=== PATIENT | male | born 1960 | race Caucasian/White ===

== ENCOUNTER → 2017-08-05 06:51 | Outpatient (CLI) | payer OTHER, SELFPAY ==
[2017-08-05 06:56] LABS: White Blood Cells 0 SEEN /hpf (0-5)
[2017-08-05 07:37] LABS: Absolute Lymphocyte Count 2.77 X10^3/ul (0.83-4.51); Basophil# 0.06 X10^3/uL; Basophil% 0.9 % (0-1); Eosinophil# 0.18 X10^3/uL; Eosinophils% 2.7 % (0-5); Hematocrit 47.2 % (40-54); Hemoglobin 16.8 g/dl (13.0-16.5); Lymphocyte # 2.77 X10^3/ul (4.0); Lymphocyte % 41.2 % (19-41); Mean Corp Hgb Conc 35.6 g/gl (32-36); Mean Corpuscular Hgb 32.6 pg (27.0-32.0); Mean Corpuscular Volume 91.7 fL (80-94); Mean Platelet Vol. 10.1 fl (6.2-12.0); Monocyte# 0.66 X10^3/uL; Monocyte% 9.8 % (0-10); Neutrophil # 3.04 X10^3/uL (2.7-7.7); Neutrophil % 45.1 % (47-70); Platelet Count 205 K/mm3 (150-450); RBC Distribution Width CV 12.1 % (11.6-14.6); Red Blood Count 5.15 M/mm3 (4.6-6.2); White Blood Count 6.7 K/mm3 (4.4-11.0)
[2017-08-05 07:47] LABS: POSITIVE COUNT NO; POSITIVE DIFFERENTIAL NO; POSITIVE MORPHOLOGY NO
[2017-08-05 07:53] LABS: Microalbumin,Random Urine 8.8 mg/L (NO RANGE EST.)
[2017-08-05 08:01] LABS: Color, Urine Yellow (Yellow); Glucose, Dipstick Normal (Normal); Ketone-Dipstick Negative (Negative); Leukocyte Esterase-Dipstick Negative /ul (Negative); Nitrite-Dipstick Negative (Negative); Occult Blood-Urine Negative /ul (Negative); Protein-Dipstick Negative (Negative); Specific Gravity, Urine 1.025 (1.002-1.030); Urine Bilirubin Dipstick Negative (Negative); Urine Clarity Clear (Clear); Urine Urobilinogen Normal (Normal)
[2017-08-05 08:11] LABS: ALB/GLOB Ratio 1.3 RATIO (0.9-2.4); AST(SGOT) 18 U/L (15-37); Alanine Aminotransfer ALT/SGPT 31 U/L (16-61); Albumin, Serum 3.9 g/dL (3.2-5.0); Alkaline Phosphatase 51 U/L (45-117); Anion Gap 8 (5-15); BUN 9 mg/dL (7-18); BUN/Creat Ratio 10.5 RATIO (10-20); Calcium,Total 8.7 mg/dL (8.5-10.1); Chloride 109 mmol/L (98-107); Cholesterol 151 mg/dL (200); Creatinine, Serum 0.86 mg/dL (0.70-1.30); EST Glomerular Filtration Rate 98 mL/min (>60); Est Glom Filt Rate - Afr Amer 119 mL/min (>60); Globulin 3.1 g/dL (2.2-4.2); Glucose 125 mg/dL (74-106); High Density Lipoprotein 47 mg/dL; PSA,Total - Annual Screen 0.68 ng/mL (0.00-4.00); Potassium 4.2 mmol/L (3.5-5.1); Sodium Level 141 mmol/L (136-145); Thyroid Stim Hormone (TSH) 2.71 uIU/mL (0.358-3.74); Triglycerides 142 mg/dL; Very Low Density Lipoprotein 28 mg/dL (5-40)
[2017-08-05 08:26] LABS: Bacteria RARE /hpf (None Seen); Mucous, Urine 1+ /hpf (<or=2+); Red Blood Cells-Urine 0-5 SEEN /hpf (0-5); Squamous Epithelial Cells - UA 0-5 SEEN /hpf (0-5)
[2017-08-06 08:21] LABS: Vitamin D,25 Hydroxy 79.9 ng/mL (29.95-100.01)
== END ==
PROVIDERS: Family Provider Internal Medicine; PCP Internal Medicine; Visit Provider Internal Medicine
DX: Z12.5 Encounter for screening for malignant neoplasm of prostate (principal); E55.9 Vitamin D deficiency, unspecified; E78.00 Pure hypercholesterolemia, unspecified; I10 Essential (primary) hypertension; R73.02 Impaired glucose tolerance (oral)
CPT/HCPCS: 36415; 80053; 80061; 81001; 82043; 82306; 82570; 84153; 84443; 85025; G0103

== ENCOUNTER → 2020-05-24 07:43 | Outpatient (CLI) | payer OTHER, SELFPAY ==
--- NOTE | 2020-05-24 07:46 | RDU_ITS ---
Reason For Study: HTN Right Renal Artery Left Renal Artery Right renal artery ostium Left renal artery ostium 133.7/37.8 138.9/40.4 RSV/EDV. PSV/EDV. Right renal artery proximal 157/56 Left renal artery proximal PSV/EDV PSV/EDV. 125.6/44.1 . Right renal artery mid 167.4/56 Left renal artery mid 134.1/44.1 PSV/EDV. PSV/EDV . Right renal artery distal Left renal artery distal 164.1/46.3 188.1/50.8 PSV/EDV. PSV/EDV. Right Renal Parenchyma Left Renal Parenchyma Upper Pole Medula 26.2/7.7 PSV/EDV. Left upper pole medulla 30/12.4 Right upper pole medulla EDR 0.30 . PSV/EDV . Right upper pole medulla R.I. Left upper pole medulla EDR 0.41 . 0.70 . Left upper pole medulla R.I. 0.59 . Upper Norberto Cortx 19.4/7.7 PSV/EDV. UP Cortex 16.3/5.8 PSV/EDV. Right upper pole cortex EDR 0.40 . Left upper pole cortex EDR 0.36 . Right upper pole cortex R.I. 0.60 . Left upper pole cortex R.I. 0.64 . Right lower Pole medulla 24.3/7.7 Left lower Pole medulla 30.6/10.2 PSV/EDV . PSV/EDV . Right lower pole medulla EDR 0.32 . Left lower pole medulla EDR 0.33 . Right lower pole medulla R.I. Left lower pole medulla R.I. 0.67 . 0.68 . Lower Pole Cortx 20.7/6.9 PSV/EDV. Lower Pole Cortex 15.1/4.7 PSV/EDV. Left lower pole cortex EDR 0.34 . Right lower pole cortex EDR 0.31 . Left lower pole cortex R.I. 0.66 . Right lower pole cortex R.I. 0.69 . Left Renal Hilar Right Renal Hilar LT Hilar avg 61.7/18.8 PSV/EDV . Right Hilar avg 59.9/19.3 PSV/EDV. Left hilar acceleration time 50 Right hilar acceleration time 50 m/sec. m/sec. Left Renal Dimensions Right Renal Dimensions Left kidney size 12.15 cm . Right kidney size 11.61 cm . Left cortical dimension 2.12 cm . Right cortical dimension 1.86 cm . Aorta Proximal abdominal aorta 1.84 x 1.84 cm . Proximal abdominal aorta peak systolic velocity is 107 cm/sec . Distal abdominal aorta 1.39 x 1.39 cm . Distal abdominal aorta peak systolic velocity is 108.8 cm/sec . Interpretation Summary Less than 60% stenosis bilateral renal arteries Normal proximal aortic diameter 1.84 x 1.84 cm. Aortic velocities minimally elevated above 100 cm/s flow making renal artery to aortic ratios not reliable Right renal length maintained at 11.61 cm Left renal length maintained at 12.15 cm Ordering Physician: Vivienne Cordero Referring Physician: Vivienne Cordero Performed By: Yanna Richard RVT
== END ==
PROVIDERS: PCP Internal Medicine; Referring Provider Internal Medicine; Visit Provider Internal Medicine
DX: I10 Essential (primary) hypertension (principal)
CPT/HCPCS: 93975

== ENCOUNTER → 2020-06-26 07:47 | Outpatient (CLI) | payer OTHER, SELFPAY ==
--- NOTE | 2020-06-26 07:49 | CT_ITS ---
STUDY: CT ABDOMEN AND PELVIS WITH AND WITHOUT CONTRAST REASON FOR EXAM: Male, 59 years old. ELEVATED NOREPINEPHRINE LEVEL RADIATION DOSAGE (If Supplied By Facility): CTDIvol = ( 21.35 ) mGy, DLP = ( 2632.40 ) mGycm TECHNIQUE: Transaxial images were obtained from the dome of the diaphragm to the symphysis pubis without oral contrast. IV 100mL Isovue-300 was administered. Sagittal and coronal images were reconstructed. Individualized dose optimization techniques were used for this CT. COMPARISON: None. FINDINGS: The visualized lung bases are unremarkable. The visualized portions of the heart are within normal limits. Normal liver. Normal gallbladder and extrahepatic biliary system. Normal spleen. Normal pancreas. Normal bilateral adrenal glands. Normal right kidney. Normal left kidney. Normal visualized stomach. Normal small intestine. There are multiple colonic diverticula consistent with diverticulosis. Postsurgical changes are noted in the sigmoid colon. There are surgical clips in the region of the appendix consistent with a prior appendectomy. Normal abdominal aorta. Normal inferior vena cava. Normal retroperitoneum. Normal urinary bladder. Normal abdominal wall. Normal osseous structures. CT/CT Abd/Pelvis W/WO Contrast IMPRESSION: Descending colon diverticulosis. Electronically Signed: Mulu Dangelo MD at 11:20 EST Tel , Service support ,
[2020-06-26 08:10] LABS: CREATININE FINGERSTICK 0.9 mg/dL (0.70-1.30)
== END ==
PROVIDERS: PCP Internal Medicine; Referring Provider Internal Medicine; Visit Provider Internal Medicine
DX: R94.7 Abnormal results of other endocrine function studies (principal)
CPT/HCPCS: 74178; Q9967

== ENCOUNTER → 2021-01-10 06:43 | Outpatient (CLI) | payer OTHER, SELFPAY ==
--- NOTE | 2021-01-10 06:45 | CT_ITS ---
STUDY: LOW DOSE CT LUNG CANCER SCREENING REASON FOR EXAM: Male, 60 years old. SMOKER. Patient smokes 1 pack per day for 35 years. RADIATION DOSAGE (If Supplied By Facility): CTDIvol = ( 4.02 ) mGy, DLP = ( 138.43 ) mGycm TECHNIQUE: No contrast was administered. Low dose technique was utilized (average mAS-38 and kVp 120). 1.25 mm axial source images with a slice interval of 1.25-mm were reconstructed in lung windows. 2.5 mm axial source images with a slice interval of 2.5-mm were reconstructed in lung windows. 5.0 mm axial source images with a slice interval of 5.0-mm were reconstructed in soft tissue windows. Nodule measured using lung windows on PACS and/or independent workstation with automated measurement of minimum and maximum diameter. Nodule measurement reported as average diameter rounded to the nearest whole number. Growth is defined as an increase ins size of greater than 1.5 mm. COMPARISON: None. NODULES: No suspicious nodules are seen. Emphysema: Minimal degree of emphysematous changes. Endobronchial lesion: None Aorta: Minimal atherosclerotic plaques of the aortic arch. Coronary arteries: Coronary artery calcification. Heart: Unremarkable Pulmonary artery: Unremarkable Mediastinal nodes: Unremarkable Other chest and abdominal findings: CT/Low Dose CT Lung Screening IMPRESSION: Lung-RADS category 2 - Continue annual screening with LDCT in 12 months. IMPORTANT NOTES FOR USE: ACR Lung-RADS Version 1.1 Assessment Categories Release Date: 2018 Category: Coded 0-4 bases on nodule(s) with highest degree of suspicion. Negative screen is defined as categories 1 and 2; a positive screen is defined as categories 3 and 4. Category 3 and 4A nodules that are unchanged on interval CT should be coded as category 2, and individuals returned to screening in 12 months. Category 4X: Category 3 or 4 nodules with additional imaging findings that increase the suspicion of lung cancer, such as spiculation, GGN that doubles in size in 1 year, enlarged lymph notes, etc. Category Modifiers: S (significant finding unrelated to lung cancer) Electronically Signed: Alexis Busby MD at 12:44 EDT , Service support ,
== END ==
PROVIDERS: PCP Internal Medicine; Referring Provider Internal Medicine; Visit Provider Internal Medicine
DX: Z12.2 Encounter for screening for malignant neoplasm of respiratory organs (principal); Z87.891 Personal history of nicotine dependence
CPT/HCPCS: 71271

== ENCOUNTER → 2022-02-20 | Outpatient (CLI) | payer OTHER, SELFPAY ==
--- NOTE | 2022-02-20 07:18 | CT_ITS ---
STUDY: LOW DOSE CT LUNG CANCER SCREENING REASON FOR EXAM: Male, 61 years old. One half to three-quarter pack per day smoker x39 years, hypertension RADIATION DOSAGE (If Supplied By Facility): CTDIvol = ( 3.02 ) mGy, DLP = ( 109.85 ) mGycm TECHNIQUE: No contrast was administered. Low dose technique was utilized (average mAS-38 and kVp 120). 1.25 mm axial source images with a slice interval of 1.25-mm were reconstructed in lung windows. 2.5 mm axial source images with a slice interval of 2.5-mm were reconstructed in lung windows. 5.0 mm axial source images with a slice interval of 5.0-mm were reconstructed in soft tissue windows. COMPARISON: 01/10/2021 FINDINGS: Lung windows show the lungs to be normally expanded. Chronic interstitial changes again noted in both lung huang without a superimposed pulmonary process, no organized infiltrate, or suspicious noncalcified mass or nodule. No significant interval change since the previous study. Soft tissue windows show normal-appearing thyroid gland. No suspicious axillary, mediastinal, or perihilar adenopathy. No pleural or pericardial effusions. There are calcified coronary vessels. Limited cuts through the upper abdomen do not show a suspicious abnormality. Bony structures show degenerative change CT/Low Dose CT Lung Screening IMPRESSION: Lung-RADS category 2 - Continue annual screening with LDCT in 12 months. IMPORTANT NOTES FOR USE: ACR Lung-RADS Version 1.1 Assessment Categories Release Date: 2018 Category: Coded 0-4 bases on nodule(s) with highest degree of suspicion. Negative screen is defined as categories 1 and 2; a positive screen is defined as categories 3 and 4. Category 3 and 4A nodules that are unchanged on interval CT should be coded as category 2, and individuals returned to screening in 12 months. Category 4X: Category 3 or 4 nodules with additional imaging findings that increase the suspicion of lung cancer, such as spiculation, GGN that doubles in size in 1 year, enlarged lymph notes, etc. Category Modifiers: S (significant finding unrelated to lung cancer) Electronically Signed: Adiel Trinh MD at 8:38 EDT ,
== END | disposition home or self-care (01) ==
LOC: CT 07:16
PROVIDERS: PCP Internal Medicine; Referring Provider Internal Medicine; Visit Provider Internal Medicine
DX: Z12.2 Encounter for screening for malignant neoplasm of respiratory organs (principal); Z87.891 Personal history of nicotine dependence
CPT/HCPCS: 71271

== ENCOUNTER → 2022-03-01 | Outpatient (CLI) | payer OTHER, SELFPAY ==
--- NOTE | 2022-03-01 12:56 | PFTCOMP ---
COMPLETE PULMONARY FUNCTION TEST INTERPRETATION Brief HPI: Patient is a 61-year-old male, currently under the care of Dr. Cordero, who presents to [facility] for complete pulmonary function tests secondary to diagnosis of abnormal CT. Respiratory therapist reports good effort and reproducible results. Interpretation: Forced expiration spirometry shows no large airways obstructive ventilatory defect with an FEV1 of 89% predicted. There is no significant bronchodilator response by strict ATS criteria. Spirograms are of good quality and plateau normally. The respiratory flow volume loop shows a normal pattern. Lung volumes by body plethysmography show a decreased total lung capacity at 5.56 L, 67% predicted. All other lung volumes are reduced symmetrically. Diffusion capacity by carbon monoxide is elevated at 127% predicted. The airway resistance is normal. No previous pulmonary function tests were available for review. Impression: Moderate restrictive ventilatory defect with preserved spirometry and DLCO
== END | disposition home or self-care (01) ==
LOC: PSN 09:10
PROVIDERS: PCP Internal Medicine; Referring Provider Internal Medicine; Visit Provider Internal Medicine
DX: R93.89 Abnormal findings on diagnostic imaging of other specified body structures (principal)
CPT/HCPCS: 94060; 94726; 94729

== ENCOUNTER → 2022-08-28 | Outpatient (CLI) | payer OTHER, SELFPAY ==
--- NOTE | 2022-08-28 06:46 | CT_ITS ---
INDICATION: Concern for ILD -- Please include HRCT images EXAMINATION: CT CHEST WITHOUT CONTRAST - CT Chest W/O Contrast Injection TECHNIQUE: Helically acquired images were obtained of the chest. A radiation dose optimization technique was used for this scan. IV Contrast dosage and agent: None. RADIATION DOSAGE (If Supplied By Facility): CTDIvol = ( 19.25 ) mGy, DLP = ( 871.14 ) mGycm COMPARISON: FINDINGS: LUNGS, PLEURA AND LARGE AIRWAYS: No masses, consolidation, or edema. No pleural effusion or thickening. No pneumothorax. THYROID: No thyroid lesions. HEART AND PERICARDIUM: Heart size is normal. No pericardial effusion. CORONARY ARTERIES: Coronary artery calcifications are noted VESSELS: Thoracic aorta is not dilated. MEDIASTINUM AND RAFAEL: No mediastinal or hilar adenopathy. Esophagus is unremarkable. No hiatal hernia. UPPER ABDOMEN: No acute pathology. BONES: No suspicious lytic or blastic abnormality. CT/Chest without Contrast IMPRESSION: Negative CT chest without contrast. Electronically Signed: Lamonte Morris DO at 18:06 EDT Reading Location ID and State: [facility] / [place] Tel [phone], Service support ,
== END | disposition home or self-care (01) ==
LOC: CT 06:45
PROVIDERS: PCP Internal Medicine; Referring Provider Internal Medicine Critical Care Medicine; Visit Provider Internal Medicine Critical Care Medicine
DX: R93.89 Abnormal findings on diagnostic imaging of other specified body structures (principal)
CPT/HCPCS: 71250

== ENCOUNTER 2023-11-27 06:31 | Outpatient (CLI) | payer OTHER, SELFPAY ==
--- NOTE | 2023-11-27 06:32 | CT_ITS ---
EXAM: CT CHEST WITHOUT INTRAVENOUS CONTRAST CLINICAL INDICATION: smoker TECHNIQUE: Helically acquired images were obtained of the chest without intravenous contrast. This CT exam was performed using one or more of the following dose reduction techniques: automated exposure control, adjustment of the mA and/or kV according to patient size, and/or use of iterative reconstruction technique. RADIATION DOSE: CTDIvol = 6.02 mGy, DLP = 151.21 mGy-cm COMPARISON: Chest CT 02/20/22 FINDINGS: LUNGS AND PLEURAL SPACES: Unremarkable. No mass. No consolidation or edema. No pleural effusion or thickening. No pneumothorax. HEART: Coronary artery calcifications. Heart size is normal. No pericardial effusion. MEDIASTINUM: Unremarkable. No mediastinal or hilar adenopathy. Esophagus is unremarkable. No hiatal hernia. THYROID: Unremarkable. No thyroid lesions. BONES/JOINTS: Unremarkable. No suspicious lytic or blastic abnormality. VASCULATURE: No dilation of the thoracic aorta. CT/Low Dose CT Lung Screening IMPRESSION: No pulmonary nodules. ACR Lung CT Screening Reporting And Data System (Lung-RADS) score: 1S - Additional clinically significant or potentially clinically significant findings are described. Recommend continued annual screening with a low-dose CT (LDCT) in 12 months. Electronically Signed: Jackson Sliva MD at 11:54 EDT ,
== END 2023-11-27 23:59 | disposition home or self-care (01) ==
LOC: CT 06:32
PROVIDERS: PCP Internal Medicine; Referring Provider Internal Medicine; Visit Provider Internal Medicine
DX: F17.210 Nicotine dependence, cigarettes, uncomplicated (principal); I25.10 Atherosclerotic heart disease of native coronary artery without angina pectoris
CPT/HCPCS: 71271

== ENCOUNTER → 2024-01-06 | Outpatient (CLI) | payer OTHER, SELFPAY ==
--- NOTE | 2024-01-06 11:59 | STRESSREP ---
Stress Test Report Date: 01/06/2024 Procedure: Pharmacologic stress nuclear imaging study Indications: Dyspnea Consent: Per the patient Procedure: The patient underwent pharmacologic (Regadenoson 0.4mg ) evaluation with a peak heart rate of 82 beats per minute (51%predicted maximal heart rate) and a peak blood pressure of 130/82 mmHg. The baseline ECG demonstrated sinus rhythm with left bundle branch block. The peak pharmacologic ECG demonstrated no diagnostic changes secondary to baseline abnormality. There were no cardiac dysrhythmias pretest, during pharmacologic infusion, or recovery. There was no complaint of chest discomfort during pharmacologic infusion or recovery. The patient was injected with 14.7 millicuries of technetium 99m Cardiolite and subsequently rest SPECT Cardiolite nuclear imaging was obtained in the horizontal long, vertical long, and short axis views. The patient underwent pharmacologic (Regadenoson) evaluation. The patient was injected with 44.3 millicuries of technetium 99m Cardiolite and subsequently stress SPECT Cardiolite nuclear imaging was obtained in the horizontal long, vertical long, and short axis views. A gated Cardiolite study at peak stress was obtained. The examination was stopped secondary to completion of protocol. Rest and stress SPECT Cardiolite nuclear imaging status post realignment, normalization, and attenuation correction demonstrate a moderate size reversible perfusion defect of the inferior wall. Hypoperfusion of the septum noted in both resting as well as post pharmacological stress images, likely related to the underlying left bundle branch block. On gated images, the LV appears dilated. Severe LV systolic dysfunction with ejection fraction of 28%. Impression: 1. Pharmacologic (Regadenoson) evaluation 2. Peak pharmacologic ECG with no diagnostic changes secondary to underlying left bundle branch block. 3. There were no cardiac dysrhythmias pretest, during pharmacologic infusion, or recovery. 5. Moderate size reversible perfusion defect of the inferior wall. Possible mild ischemia of the anterior wall as well. 6. The gated Cardiolite study reports an LVEF of 28%. Dilated left ventricle. This note was generated with [employer] software. It may contain incorrect words, spelling, and punctuation that were not noted in checking the note before signing.
== END | disposition home or self-care (01) ==
PROVIDERS: PCP Internal Medicine; Referring Provider Internal Medicine; Visit Provider Internal Medicine
DX: R94.39 Abnormal result of other cardiovascular function study (principal); R06.00 Dyspnea, unspecified
CPT/HCPCS: 78452; 93017; A9500; A4216; J2785

== ENCOUNTER → 2024-01-22 | Outpatient (CLI) | payer OTHER, SELFPAY ==
--- NOTE | 2024-01-22 12:43 | ECHOCS_ITS ---
Reason For Study: Abn stress test Procedure This was a 2D Doppler, Color Flow transthoracic echocardiogram. Exam performed in department. Left Ventricle Severely dilated left ventricular cavity. Severe LV systolic dysfunction. Severe hypokinesis of the anterior wall, septum and inferior wall. Estimated LVEF 20 to 25%. Grade 1 diastolic dysfunction. Right Ventricle Normal right ventricle. Atria The left and right atria are normal. Mitral Valve Trivial mitral valve insufficiency. Tricuspid Valve Trivial tricuspid valve insufficiency. Normal pulmonary artery pressure. Aortic Valve Trisinus/trileaflet aortic valve. Pulmonic Valve The pulmonic valve is not well visualized. Great Vessels Normal sized aortic root. Pericardium/Pleural No pericardial effusion. Medication 22 gauge I.V. with prn adaptor inserted into right arm. Performed a rapid injection of agitated mix of 9 cc saline and 1cc air to assess for atrial septal defect. Diluted definity 1.5ml given slow IV push to enhance endocardial definition. MMode/2D Measurements & Calculations LVIDd: 6.8 cm IVSd: 1.2 cm LVOT diam: 2.3 cm LVIDs: 5.8 cm LVPWd: 0.94 cm RVDd: 3.6 cm FS: 15.5 % LVOT area: 4.2 cm2 asc Aorta Diam: 3.5 cm LAV(MOD-bp): 63.2 ml LVAd ap4: 54.8 cm2 LAV(MOD-bp) Indexed: 26.3 ml/m2 LVLd ap4: 11.0 cm LAV(MOD-sp2): 66.0 ml EDV(MOD-sp4): 228.1 ml LAV(MOD-sp4): 52.4 ml EDV(sp4-el): 232.3 ml LVAs ap4: 47.4 cm2 LVLs ap4: 10.9 cm ESV(MOD-sp4): 177.6 ml ESV(sp4-el): 175.2 ml EF(MOD-sp4): 22.1 % EF(sp4-el): 24.6 % LVAd ap2: 55.0 cm2 SV(MOD-sp4): 50.5 ml SV(MOD-sp2): 68.7 ml LVLd ap2: 11.4 cm EDV(MOD-sp2): 238.5 ml EDV(sp2-el): 226.1 ml LVAs ap2: 45.7 cm2 LVLs ap2: 10.7 cm ESV(MOD-sp2): 169.8 ml ESV(sp2-el): 165.3 ml EF(MOD-sp2): 28.8 % SV(sp4-el): 57.1 ml LA dimension(2D): 2.9 cm LA A4 area: 17.7 cm2 RA A4 area: 13.3 cm2 Doppler Measurements & Calculations MV E max zach: 42.9 cm/sec Lat Peak E' Zach: 10.6 cm/sec Med Peak E' Zach: 5.2 cm/sec MV A max zach: 93.0 cm/sec E/E' lat: 4.0 E/E' med: 8.3 MV E/A: 0.46 Ao V2 max: 126.2 cm/sec LV V1 max: 112.9 cm/sec SV(LVOT): 98.2 ml Ao max P.4 mmHg LV V1 max P.1 mmHg Ao V2 mean: 87.9 cm/sec LV V1 mean P.9 mmHg Ao mean P.6 mmHg LV V1 mean: 80.7 cm/sec Ao V2 VTI: 27.8 cm LV V1 VTI: 23.3 cm AV (velocity ratio): 0.84 AMY(I,D): 3.5 cm2 AMY(V,D): 3.8 cm2 PA V2 max: 134.8 cm/sec TR max zach: 218.8 cm/sec PA max PG (full): 5.5 mmHg TR max P.2 mmHg ECHO/Echo Complete W/ Contrast Interpretation Summary Severely dilated left ventricular cavity. Severe LV systolic dysfunction. Sever e hypokinesis of the anterior wall, septum and inferior wall. Estimated LVEF 20 to 25%. Grade 1 diastolic dysfunction. Ordering Physician: Anna Youssef Referring Physician: Vivienne Cordero M.D. Performed By: Sosa Sanon RDCS and Student
[2024-01-22 13:46] LABS: Cholesterol 154 mg/dL (200); High Density Lipoprotein 42 mg/dL; Triglycerides 118 mg/dL; Very Low Density Lipoprotein 24 mg/dL (5-40)
== END | disposition home or self-care (01) ==
LOC: LAB 12:33 → CVS 13:42
PROVIDERS: PCP Internal Medicine; Referring Provider Internal Medicine Cardiovascular Disease; Visit Provider Internal Medicine Cardiovascular Disease
DX: R94.31 Abnormal electrocardiogram [ECG] [EKG] (principal); I25.10 Atherosclerotic heart disease of native coronary artery without angina pectoris
CPT/HCPCS: 36415; 80061; 93306; Q9957; A4216; C8929

== ENCOUNTER 2024-01-26 07:11 | Day surgery (SDC) | payer OTHER, SELFPAY ==
[2024-01-23 14:15] VITALS: BMI 28.0
--- NOTE | 2024-01-24 07:19 | RAD_ITS ---
EXAM: XR CHEST, 2 VIEWS CLINICAL INDICATION: [facility] TECHNIQUE: Frontal and lateral views of the chest. COMPARISON: No relevant prior studies available. FINDINGS: LUNGS AND PLEURAL SPACES: Unremarkable. No consolidation or edema. No pneumothorax. No effusion. HEART: Unremarkable. Cardiac silhouette not enlarged. MEDIASTINUM: Central airways and mediastinal contour are unremarkable. BONES/JOINTS: Unremarkable. No acute fracture. SOFT TISSUES: Unremarkable. RAD/Chest PA and Lateral IMPRESSION: No radiographic evidence of acute cardiopulmonary disease. Electronically Signed: Jackson Yusuf MD at 15:47 EDT ,
[2024-01-24 07:47] LABS: Hematocrit 44.1 % (40-54); Hemoglobin 15.4 g/dL (13.0-16.5); Mean Corp Hgb Conc 34.9 g/dL (32-36); Mean Corpuscular Volume 91.7 fL (80-94); Mean Platelet Vol. 9.8 fl (6.2-12.0); Platelet Count 227 K/mm3 (150-450); RBC Distribution Width CV 11.4 % (11.6-14.6); RBC Distribution Width SD 38.5 fl (35.1-43.9); Red Blood Count 4.81 M/mm3 (4.6-6.2); White Blood Count 8.4 K/mm3 (4.4-11.0)
[2024-01-24 08:02] LABS: International Normalized Ratio 0.9; Prothrombin Time (Protime)PT. 12.5 SECONDS (11.7-14.9)
[2024-01-24 08:05] LABS: Anion Gap 5 (5-15); BUN 13 mg/dL (7-18); Calcium,Total 9.9 mg/dL (8.5-10.1); Chloride 108 mmol/L (98-107); Creatinine, Serum 0.82 mg/dL (0.70-1.30); EST Glomerular Filtration Rate 102 mL/min (>60); Est Glom Filt Rate - Afr Amer 124 mL/min (>60); Estimated Creatinine Clearance 129.07 ml/min; Glucose 128 mg/dL (74-106); Potassium 4.1 mmol/L (3.5-5.1); Sodium Level 139 mmol/L (136-145)
--- NOTE | 2024-01-26 11:15 | CL.D_ITS ---
Patient Name: SHAWN TAVERA Study Date: 01/26/2024 Performing: Anna Youssef MD Ht: 77 inches 195.58 cm : 1960 Wt: 237 lbs 107.5 kg Age: 63 Gender: male BSA: 2.4 PROCEDURE(S) PERFORMED [id number])LHC/COR/LV CLINICAL PROFILE AND INDICATIONS Indications: Suspected CAD Heart Failure: NYHA Class: 2 Stress/Imaging Stress Test w/SPECT MPI: Yes Result: Positive Intermediate RiskStress Test with SPECT MPI: Positive Intermediate Risk CAD Presentations: No Sxs, no angina. CONCLUSIONS 10-15% calcified Prox LAD Non-dominant RCA arising from left coronary cusp LVEF 20% Non-ischemic cardiomyopathy RECOMMENDATIONS Medical therapy DESCRIPTION OF PROCEDURE The patient arrived to the procedure lab. The risks and benefits of the procedure as well as a full description of our services here and current unavailability of surgical backup were fully explained to the patient and/or their significant other prior to the catheterization. The Timeout was completed, verifying the correct patient and procedure. The patient's procedural site was prepped and draped in the usual fashion. Local anesthetic was given subcutaneously to right radial region with Lidocaine 2%. Using a modified Seldinger technique, arterial access was obtained via the right radial artery, a 6Fr sheath was inserted. Left Coronary Artery selective angiography was performed in multiple views using a 5 Fr. 4.0 [place] catheter. Right Coronary Artery selective angiography was then performed in multiple views using a 5 Fr. 3DRC (Malcom) catheter. Left Ventriculography was performed in LOVING projection using a 5 Fr. Pigtail catheter. LV to AO pullback pressures were then recorded.The arterial sheath was pulled and a TR Band was applied for hemostasis CORONARY ANGIOGRAPHY DOMINANCE: Left Dominant LEFT HEART ASSESSMENT Left Ventricular Ejection Fraction: by LV Gram 20 % LVEDP: 28 mmHg LEFT MAIN: No significant disease noted LEFT ANTERIOR DESCENDING ARTERY: LAD: Calcified 15% Proximal lesion in LAD CIRCUMFLEX ARTERY: No significant disease noted RAMUS: No significant disease noted RIGHT CORONARY ARTERY: No significant disease noted COMPLICATIONS No Complications PROCEDURE MEDICATIONS Versed 1 mg IV Fentanyl 50 mcg IV Versed 1 mg IV Oxygen: 2 L/min via nasal cannula Heparin given IA 01/26/2024 09:55:48 Verapamil 2.5mg, Ntg 200mcgs, 2000 units of Heparin given IA 01/26/2024 09:55:48 SUMMARY OF HEMODYNAMIC DATA Time AIR REST ECG 07:34:07 AO 132/82 (102) SA 09:59:32 LV 152/19, 32 10:11:41 LV 152/19, 28 10:11:49 LV 148/26, 36 10:13:26 LVp 148/28, 34 10:13:31 AOp 147/85 (110) 10:13:39 Signed By Anna Youssef MD On 01/26/2024 11:14:55 Anna Youssef MD
== END 2024-01-26 12:00 | disposition home or self-care (01) ==
PROVIDERS: PCP Internal Medicine; Referring Provider Internal Medicine Cardiovascular Disease; Visit Provider Internal Medicine Cardiovascular Disease
DX: I25.10 Atherosclerotic heart disease of native coronary artery without angina pectoris (principal); E11.9 Type 2 diabetes mellitus without complications; I10 Essential (primary) hypertension; E78.5 Hyperlipidemia, unspecified; R94.31 Abnormal electrocardiogram [ECG] [EKG]; R94.39 Abnormal result of other cardiovascular function study; Z79.82 Long term (current) use of aspirin; Z79.84 Long term (current) use of oral hypoglycemic drugs; Z79.899 Other long term (current) drug therapy; Z87.891 Personal history of nicotine dependence
CPT/HCPCS: 36415; 71046; 80048; 85027; 85610; 93458; 99152; 99153; Q9967; C1769; C1894

== ENCOUNTER → 2024-01-30 | Outpatient (CLI) | payer OTHER, SELFPAY ==
[2024-01-30 07:57] LABS: Anion Gap 8 (5-15); BUN 15 mg/dL (7-18); BUN/Creat Ratio 15.2 RATIO (10-20); Calcium,Total 9.4 mg/dL (8.5-10.1); Chloride 106 mmol/L (98-107); Creatinine, Serum 0.99 mg/dL (0.70-1.30); EST Glomerular Filtration Rate 82 mL/min (>60); Est Glom Filt Rate - Afr Amer 99 mL/min (>60); Glucose 130 mg/dL (74-106); Potassium 4.1 mmol/L (3.5-5.1); Sodium Level 136 mmol/L (136-145)
== END | disposition home or self-care (01) ==
PROVIDERS: PCP Internal Medicine; Referring Provider Internal Medicine Cardiovascular Disease; Visit Provider Internal Medicine Cardiovascular Disease
DX: R94.31 Abnormal electrocardiogram [ECG] [EKG] (principal); E11.9 Type 2 diabetes mellitus without complications; I25.10 Atherosclerotic heart disease of native coronary artery without angina pectoris; I10 Essential (primary) hypertension; D75.1 Secondary polycythemia; F17.200 Nicotine dependence, unspecified, uncomplicated
CPT/HCPCS: 36415; 80048

== ENCOUNTER → 2024-03-09 | Outpatient (CLI) | payer OTHER, SELFPAY ==
[2024-03-09 10:40] LABS: Anion Gap 4 (5-15); BUN 15 mg/dL (7-18); BUN/Creat Ratio 15.2 RATIO (10-20); Calcium,Total 9.7 mg/dL (8.5-10.1); Chloride 107 mmol/L (98-107); Creatinine, Serum 0.99 mg/dL (0.70-1.30); EST Glomerular Filtration Rate 82 mL/min (>60); Est Glom Filt Rate - Afr Amer 99 mL/min (>60); Glucose 116 mg/dL (74-106); Potassium 4.4 mmol/L (3.5-5.1); Sodium Level 138 mmol/L (136-145)
== END | disposition home or self-care (01) ==
LOC: LAB 09:34
PROVIDERS: PCP Internal Medicine; Referring Provider Internal Medicine Cardiovascular Disease; Visit Provider Internal Medicine Cardiovascular Disease
DX: I10 Essential (primary) hypertension (principal); E11.9 Type 2 diabetes mellitus without complications; R94.31 Abnormal electrocardiogram [ECG] [EKG]; Z98.890 Other specified postprocedural states
CPT/HCPCS: 36415; 80048; 84443

== ENCOUNTER → 2024-04-19 | Outpatient (CLI) | payer OTHER, SELFPAY ==
--- NOTE | 2024-04-19 13:34 | ECHOCS_ITS ---
Reason For Study: Dilated CM Procedure This was a 2D Doppler, Color Flow transthoracic echocardiogram. Contrast injection was performed. Exam performed in department. Left Ventricle Mild LV concentric hypertrophy. Severely dilated left ventricular cavity with severe LV systolic dysfunction. Estimated LVEF 15 to 20%. Dyssynchronous wall motion with underlying bundle branch block. Stage 1 diastolic dysfunction. Right Ventricle Normal right ventricle. Atria The left and right atria are normal. Mitral Valve Trivial mitral valve insufficiency. Tricuspid Valve Normal tricuspid valve. Aortic Valve Trisinus/trileaflet aortic valve. Pulmonic Valve The pulmonic valve is not well visualized. Great Vessels Normal sized aortic root. Pericardium/Pleural No pericardial effusion. Medication Diluted definity 3ml given slow IV push to enhance endocardial definition. MMode/2D Measurements & Calculations LVIDd: 5.3 cm IVSd: 1.4 cm asc Aorta Diam: 3.5 cm LVIDs: 4.9 cm LVPWd: 1.3 cm RVDd: 3.8 cm FS: 9.1 % LAV(MOD-bp): 39.2 ml LVAd ap4: 58.6 cm2 LVAd ap2: 45.6 cm2 LAV(MOD-bp) Indexed: 18.4 ml/m2 LVLd ap4: 10.6 cm LVLd ap2: 9.7 cm LAV(MOD-sp2): 64.1 ml EDV(MOD-sp4): 261.9 ml EDV(MOD-sp2): 179.0 ml LAV(MOD-sp4): 23.9 ml EDV(sp4-el): 274.4 ml EDV(sp2-el): 181.6 ml LVAs ap4: 46.0 cm2 LVAs ap2: 37.8 cm2 LVLs ap4: 9.8 cm LVLs ap2: 9.2 cm ESV(MOD-sp4): 180.8 ml ESV(MOD-sp2): 133.8 ml ESV(sp4-el): 183.1 ml ESV(sp2-el): 131.9 ml EF(MOD-sp4): 31.0 % EF(MOD-sp2): 25.3 % EF(sp4-el): 33.3 % SV(MOD-sp4): 81.1 ml SV(MOD-sp2): 45.2 ml SV(sp4-el): 91.3 ml SI(MOD-sp4): 38.1 ml/m2 SI(MOD-sp2): 21.2 ml/m2 LA A4 area: 12.1 cm2 LA dimension(2D): 3.7 cm RA A4 area: 12.1 cm2 TAPSE: 2.2 cm Time Measurements MV dec time: 0.19 sec Doppler Measurements & Calculations MV E max zach: 46.0 cm/sec Lat Peak E' Zach: 6.7 cm/sec Med Peak E' Zach: 7.5 cm/sec MV A max zach: 82.6 cm/sec E/E' lat: 6.9 E/E' med: 6.1 MV E/A: 0.56 MV dec slope: 239.7 cm/sec2 Ao V2 max: 138.1 cm/sec LV V1 max: 126.4 cm/sec Ao max P.7 mmHg LV V1 max P.4 mmHg Ao V2 mean: 91.1 cm/sec Ao mean P.0 mmHg Ao V2 VTI: 23.6 cm PA V2 max: 125.8 cm/sec ECHO/Echo Complete W/ Contrast Interpretation Summary Mild LV concentric hypertrophy. Severely dilated left ventricular cavity with severe LV systolic dysfunction. E stimated LVEF 15 to 20%. Dyssynchronous wall motion with underlying bundle branch block. Stage 1 diastolic dysfunction. Ordering Physician: Anna Youssef Referring Physician: Vivienne Cordero Performed By: Laura Antonio, RDCS, RVT
== END | disposition home or self-care (01) ==
LOC: CVS 13:34
PROVIDERS: PCP Internal Medicine; Referring Provider Internal Medicine Cardiovascular Disease; Visit Provider Internal Medicine Cardiovascular Disease
DX: I42.0 Dilated cardiomyopathy (principal); R94.39 Abnormal result of other cardiovascular function study
CPT/HCPCS: 93306; Q9957; A4216; C8929

== ENCOUNTER 2024-10-07 10:54 | Observation (INO) | payer OTHER, SELFPAY ==
--- NOTE | 2024-09-23 15:53 | RAD_ITS ---
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 COMPARISON: 02/13/2024 FINDINGS: No focal consolidations. No pleural effusion or pneumothorax. Cardiac silhouette is unchanged. No acute fractures. RAD/Chest PA and Lateral IMPRESSION: No focal consolidations. Reading Location: [id number]
[2024-09-23 16:13] LABS: Mucous, Urine 0 SEEN /hpf (<or=2+); Squamous Epithelial Cells - UA 0 SEEN /hpf (0-5)
[2024-09-23 17:13] LABS: Hematocrit 47.8 % (40-54); Hemoglobin 16.8 g/dL (13.0-16.5); Mean Corp Hgb Conc 35.1 g/dL (32-36); Mean Corpuscular Hgb 33.3 pg (27.0-32.0); Mean Corpuscular Volume 94.8 fL (80-94); Mean Platelet Vol. 9.6 fl (6.2-12.0); Platelet Count 236 K/mm3 (150-450); RBC Distribution Width CV 11.9 % (11.6-14.6); RBC Distribution Width SD 41.1 fl (35.1-43.9); Red Blood Count 5.04 M/mm3 (4.6-6.2); White Blood Count 8.5 K/mm3 (4.4-11.0)
[2024-09-23 17:37] LABS: Anion Gap 12 (5-15); BUN 13 mg/dL (4-19); BUN/Creat Ratio 12.6 RATIO (10-20); Carbon Dioxide 23.7 mmol/L (21.0-32.0); Chloride 106 mmol/L (98-108); Creatinine, Serum 0.99 mg/dL (0.70-1.20); EST Glomerular Filtration Rate 87 (>60); Glucose 112 mg/dL (70-99); Potassium 4.1 mmol/L (3.3-5.1); Sodium Level 141 mmol/L (133-145)
--- NOTE | 2024-09-23 17:49 | PAT.ANESEVAL ---
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 When Was Last Pacemaker Check QUESTION #4 FULL TEXT: You/Your Family Experience fever (hyperthermia) with Anesthesia Last Oral Intake Last Oral intake: Last Oral Intake NPO since Meds taken in AM with sips of water? Meds patient instructed to take am of surgery PONV PONV - mimeograph operator: PONV - mimeograph operator Female No 09/23/24 11:15 HX of Motion Sickness Yes 09/23/24 11:15 HX of N/V After Surgery No 09/23/24 11:15 Non-Smoker Yes 09/23/24 11:15 Duration of Surgery greater Yes 09/23/24 11:15 than 60 minutes Number of Risk Factors 3 09/23/24 11:15 PONV Score Moderate Risk 09/23/24 11:15 Height & Weight Height & Weight: Anesthesia: Height & Weight Height 6 ft 5 in 09/03/24 09:07 Respiratory Assessment Respiratory Assessment - mimeograph operator: Respiratory Tract Infection Hx - mimeograph operator Hx Respiratory Tract Infection No 09/23/24 11:15 STOP Sleep Apnea STOP Sleep Apnea - mimeograph operator: STOP Sleep Apnea - mimeograph operator Hx Hypertension Yes: CONTROLLED WITH MED 09/23/24 11:15 Hx Sleep Apnea Yes 09/23/24 11:15 CPAP Yes: NON COMPLIANT, NEVER 09/23/24 11:15 GOT MACHINE BIPAP No 09/23/24 11:15 Do you snore loudly (louder than talking or can be heard Do you often feel tired/ fatigued/ sleepy during daytime? Has anyone observed you stop breathing during sleep? STOP Results Positive 09/23/24 11:15 QUESTION #5 FULL TEXT : Do you snore loudly (louder than talking or can be heard through closed doors)? 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 Specify any problems Hx of Preganancy in last 3 N/A 09/23/24 11:15 Months Nurse Filling Out Transfusion NBUCHER 09/23/24 11:15 & Questions: Date: 09/23/24 09/23/24 11:15 Time: 11:18 09/23/24 11:15 Patient unable to answer at this time (ie. confused, unrespo /Reproduction History /Reproductive History - mimeograph operator: /Reproductive Hx- mimeograph operator Hx Now No 09/23/24 11:15 Gestational Age (in weeks): EDC: Hx Hx Para Hx Section SAB No 09/23/24 11:15 [facility] Medical History (Updated 09/23/24 @ 11:25 by So Ward) Wears contact lenses Alcohol use Former smoker High cholesterol History of diverticulitis Cardiology follow-up encounter History of echocardiogram History of stress test Non-ischemic cardiomyopathy Abnormal EKG History of high cholesterol History of high blood pressure History of environmental allergies Polycythemia Elevated norepinephrine level Vitamin D deficiency Hypercholesteremia Hypercalcemia Smoker Stress reaction Grieving Hypertension Osteoarthritis DDD (degenerative disc disease) Low back pain Abnormal glucose tolerance test Abnormal chest CT Home Medications ?Medication ?Instructions ?Recorded ?Last Taken ?Type cholecalciferol (vitamin D3) 50 150 mcg PO DAILY 05/28/22 Unknown History mcg (2,000 unit) capsule lovastatin 20 mg tablet 20 mg PO DAILY 05/28/22 Unknown History metformin 500 mg tablet,extended 500 mg PO BID 02/07/23 Unknown History release 24 hr phytonadione (vitamin K1) 100 mcg 100 mcg PO DAILY 05/28/22 Unknown History tablet tramadol 50 mg tablet 50 mg PO Q8H PRN pain 05/28/22 Unknown History ascorbate calcium (vitamin C) 500 500 mg PO BID 01/22/23 Unknown History mg tablet aspirin 81 mg tablet,delayed 81 mg PO QDAY #90 tabs 01/26/24 Unknown Rx release (Adult Aspirin Regimen) furosemide 20 mg tablet (Lasix) 20 mg PO QDAY #90 tabs 01/26/24 Unknown Rx potassium chloride 10 mEq 10 meq PO QDAY #90 caps 01/26/24 Unknown Rx capsule,extended release carvedilol 6.25 mg tablet 6.25 mg PO BID #180 tabs 06/16/24 Unknown Rx valsartan 160 mg tablet 160 mg PO QDAY #90 tabs 06/16/24 Unknown Rx dapagliflozin propanediol 10 mg 10 mg PO QDAY Daily: Fax to 08/31/24 Unknown History tablet (Farxiga) [facility] [phone] Allergy/AdvReac Type Severity Reaction Status Date / Time Penicillins Allergy Unknown unknown Verified 09/23/24 11:12 Family History Father Diabetes Brother Cancer Bipolar 1 disorder Depression Anxiety Daughter Anxiety Surgical History (Updated 09/23/24 @ 11:25 by So Ward) History of cardiac catheterization History of intestinal surgery (~07/2001) Social History Smoking Status: Former smoker how long ago did patient quit smokin/4 pack daily alcohol intake: current details: frequently substance use type: does not use additional social history: pt denies vaping, pt denies edibles, denies marijuana use, uses aspirin daily( baby) Ibuprofen as needed Audit: Pertinent Findings Pertinent Findings EKG Perinent findings: September 03, 2024. Sinus rhythm. Right axis deviation. Left bundle branch block. Stress test pertinent findings: January 06, 2024. EF is 28%. Moderate size reversible perfusion defect of the inferior wall. Possible mild ischemia of the anterior wall as well. Echo (EF%) pertinent findings: 04/19/2024. EF is 15 to 20%. Severely dilated left ventricular cavity with severe left ventricular systolic dysfunction. No aortic stenosis is noted. Heart catheterization pertinent findings: January 26, 2024. Left ventricular ejection fraction 20%. Nonischemic cardiomyopathy. 15% proximal LAD lesion. No significant disease in the remainder of coronary arteries. Consult pertinent findings: September 03, 2024. Dr. Flores. 1. Nonischemic cardiomyopathy-ejection fraction 15 to 20%. Patient on optimal medical therapy. Discussed resynchronization ICD for prevention of sudden cardiac , given patient's EF and NYHA class III symptoms. Current Visit Impressions Current Visit Impressions: Clinical Impression(s) from Imaging Studies Chest X-Ray 09/23/24 15:53 IMPRESSION: No focal consolidations. Reading Location: [id number] Recommendation Anesthesia Recommendation Anesthesia recommendation: OPTIMIZED for anesthesia
[2024-09-23 21:18] LABS: Color, Urine Straw (Yellow); Glucose, Dipstick 1000 mg/dl (Normal); Ketone-Dipstick Negative (Negative); Leukocyte Esterase-Dipstick Negative /ul (Negative); Nitrite-Dipstick Negative (Negative); Occult Blood-Urine Negative /ul (Negative); Protein-Dipstick 15 mg/dl (Negative); Urine Bilirubin Dipstick Negative (Negative); Urine Clarity Clear (Clear); Urine Urobilinogen Normal (Normal)
[2024-09-23 22:29] LABS: Bacteria 1+ /hpf (None Seen); White Blood Cells 0-5 SEEN /hpf (0-5)
[2024-09-23 22:30] LABS: Red Blood Cells-Urine 0-5 SEEN /hpf (0-5)
--- NOTE | 2024-10-05 15:35 | PCM.HP.BLA ---
History and Physical Date of Admission: 10/07/24 HISTORY OF PRESENT ILLNESS The patient presents for implantation of resynchronize ICD. The patient has a history of heart failure of unknown etiology and has not experienced a myocardial infarction. Cardiac catheterization revealed no blockages, precluding revascularization. The patient?s current risk is cardiac arrest due to erratic electrical activity in the damaged myocardium. The patient's heart is working at approximately 20% efficiency, significantly below the normal 60%. There is also concern for left bundle branch block, resulting in asynchronous ventricular contraction. The patient reports a history of smoking cessation. The patient's brother has a history of coronary artery disease requiring stenting. The patient denies swelling in his ankles or other signs of fluid overload. 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 The patient?s blood pressure was elevated today during the visit. Relevant past medical history includes hypertension, hyperlipidemia, and diabetes with normal renal function, creatinine 0.80. Current medications include Coreg, aspirin, Farxiga, Lasix, valsartan, and lovastatin. Stress test performed January 06, 2024 showed EF of 28% with moderate reversible defect in inferior wall, mild reversible defect in the anterior wall. Cardiac catheterization performed on January 26, 2024 showed patent coronaries with no evidence of coronary disease. 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 Echocardiogram performed on April 19, 2024 shows an EF of 15-20% with trivial mitral insufficiency. EKG on 09/03/2024 shows sinus rhythm at 71 bpm. There is right axis deviation. There is a complete left bundle branch block, QRS duration 198 ms. # REVIEW OF SYSTEMS CONSTITUTIONAL: Fatigue, positive CARDIOVASCULAR: Palpitations, positive NEUROLOGICAL: Dizziness, positive # PHYSICAL EXAMINATION GENERAL APPEARANCE: Activity normal for age, well developed/well nourished, no cyanosis, pallor, or diaphoresis CARDIAC: Regular rate and rhythm, no edema MUSCLES/EXTREMITIES: No lower extremity swelling SKIN: Warm, pink and dry, no rashes, dermatoses, petechiae, or lesions # ASSESSMENT AND PLAN A/P Problem: Nonischemic cardiomyopathy: EF 15-20%, on optimal medical therapy. EKG shows left bundle branch block. QRS duration is 198 ms. Shared decision making with patient and regarding ICD implantation, risks and benefits were discussed. Plan: A resynchronization ICD was recommended for primary prevention of sudden cardiac , given the patient's EF of 15-20% and NYHA class III symptoms despite optimal medical therapy. The patient was educated about the risks and benefits of a resynchronization ICD implantation, including the potential for inappropriate shocks, infection, and bleeding. The patient was also educated about the role of the ICD as a safety net, not a cure, and that he will need to continue his current medications. The patient verbalized understanding of the plan, and agreed to proceed with ICD placement. 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 Required: No Accompanied by: Is patient in pain?: No Allergies Penicillins Allergy (Unknown, Verified 09/03/24 13:06) unknown Medications: See EMR Ejection fraction %: 15 Have you fallen in the past year?: No PFSH Medical History Abnormal chest CT Abnormal EKG Abnormal glucose tolerance test DDD (degenerative disc disease) Elevated norepinephrine level Grieving History of environmental allergies History of high blood pressure History of high cholesterol Hypercalcemia Hypercholesteremia Hypertension Low back pain Non-ischemic cardiomyopathy Osteoarthritis Polycythemia Smoker Stress reaction Vitamin D deficiency Surgical History History of intestinal surgery Family History Father DiabetesBrother Cancer Bipolar 1 disorder Depression AnxietyDaughter Anxiety Social History Smoking Status: Former smoker how long ago did patient quit smokin/4 pack daily alcohol intake: current details: frequently substance use type: does not use additional social history: pt denies vaping, pt denies edibles, denies marijuana use, uses aspirin daily( baby) Ibuprofen as needed ROS Const Const: Positive for fatigue; Negative for weakness, headache(s) or weight gain ENT ENT: Negative for headache(s), dizziness, Nosebleed/epistaxis or balance problems Cardio Chest Pain: No Palpitations: No Edema: None Muscle aches with walking: None Resp Respiratory: Negative for SOB with activity, SOB at rest or SOB orthopnea\SOB lying down GI GI: Negative nausea, vomiting or heartburn Musc Musc: Negative for muscle aches/ myalgia, muscle weakness, joint pain or balance problems Neuro Neuro: Negative for dizziness, lightheadedness, near syncope, syncope, headache(s) or weakness Endo Endo: Positive for fatigue Supplemental Info Supplemental Information Cardiac Catheterization 01/26/2024: Conclusions: 10-15% calcified Prox LAD 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 Severely dilated left ventricular cavity with severe LV systolic dysfunction. Estimated LVEF 15 to 20%. Dyssynchronous wall motion with underlying bundle branch block. Stage 1 diastolic dysfunction. Echocardiogram 01/22/2024: Interpretation Summary: Severely dilated left ventricular cavity. Severe LV systolic dysfunction. Severe hypokinesis of the anterior wall, septum and inferior wall. Estimated LVEF 20 to 25%. Grade 1 diastolic dysfunction. Echocardiogram 08/15/2010: Interpretation Summary: Mild concentric left ventricular hypertrophy. Inferior segmental left ventricular dysfunction with preserved EF of 55%. Trivial mitral valve insufficiency. Trivial tricuspid valve insufficiency. Trivial aortic valve insufficiency. Trivial pulmonic valve insufficiency. Stress Test 01/06/2024: Impression: 1. Pharmacologic (Regadenoson) evaluation 2. Peak pharmacologic ECG with no diagnostic changes secondary to underlying left bundle branch block. 3. There were no cardiac dysrhythmias pretest, during pharmacologic infusion, or recovery. 5. Moderate size reversible perfusion defect of the inferior wall. Possible mild ischemia of the anterior wall as well. 6. The gated Cardiolite study reports an LVEF of 28%. Dilated left ventricle. CT Cardiac Scoring w/o IV Contrast 12/10/2023: Findings: LM: 0 LAD: 562.54 LCx: 0 RCA: 0 Total: 562.[address] w/o Contrast 08/28/2022: Impression: Negative CT chest w/o contrast. 24-Hour Holter Monitor 09/25/2010: Interpretation: This is a 24 hour holter scan. Sinus Rhythm. *Predominantly Sinus Bradycardia with an occasional rate dependent bundle branch pattern. Minimum heart rate 42 bpm at 11:21 PM. *Average heart rate 58 bpm. Maximum heart rate 104 bpm at 07:53 AM. No activity recorded in pt diary at this time. Rare premature atrial complexes. No runs. Rare premature ventricular complexes. No runs. No symptoms in pt diary. Assessment and Plan Assessment and Plan (1) Non-ischemic cardiomyopathy: Status: Chronic (2) LBBB (left bundle branch block): Status: Acute Patient Instructions: Will proceed with POST PRODUCTION ASSISTANT?D placement.
[2024-10-07] VITALS (17 sets, daily range): BP systolic 104–165; BP diastolic 72–94; PULSE 59–72; RESP 14–18; TEMP 36.1–36.7; O2SAT 95–98; BMI 27.6
[2024-10-07] MEDS: Lactated Ringers 1,000 ML 15 ML IV (09:02)
--- NOTE | 2024-10-07 09:12 | PCM.PRE.AN2 ---
ASA Classification* ASA Classification ASA Classification: 4 (EF 15-20%. LBBB (complete). HTN, HLD, Diabetes. ) Assessment & Plan Anesthesia* Anesthesia Assessment Anesthesia Assessment: Discussed sedation and/or anesthesia options, risks, benefits, and alternatives with patient/parents/legal guardian/POA. Questions invited. The patient/parents/legal guardian/POA seems to understand and agrees to proceed with anesthesia plan. Reviewed the physical assessment, medical history, allergy history and patient home medications list prior to surgery/procedure/anesthetic and documented any changes. Performed airway and anesthesia risk assessments. resynchronization ICD was recommended for primary prevention of sudden cardiac , given the patient's EF of 15-20% and NYHA class III symptoms despite optimal medical therapy. Anesthesia Type Anesthesia Type: MAC Anesthesia Focused Assessment* Temperature: 97.2 F Pulse Rate: 69 Blood Pressure: 145/86 Respiratory Rate: 18 Pulse Ox: 98 Oxygen Delivery Method: Room Air Airway Assessment Mouth opens: >3 cm Mallampati Score: II Neck Range of motion (ROM): Full ROM Labs Anesthesia Preop lab: CBC WBC 8.5 K/mm3 (4.4-11.0) 09/23/24 16:09/23/24 RBC 5.04 M/mm3 (4.6-6.2) 09/23/24 16:09/23/24 Hgb 16.8 g/dL (13.0-16.5) H 09/23/24 16:09/23/24 Hct 47.8 % (40-54) 09/23/24 16:09/23/24 Plt Count 236 K/mm3 (150-450) 09/23/24 16:09/23/24 CHEMISTRY Potassium 4.1 mmol/L (3.3-5.1) 09/23/24 16:09/23/24 Sodium 141 mmol/L (133-145) 09/23/24 16:09/23/24 BUN 13 mg/dL (4-19) 09/23/24 16:09/23/24 Creatinine 0.99 mg/dL (0.70-1.20) 09/23/24 16:06 09/23/24 Glucose 112 mg/dL (70-99) H 09/23/24 16:06 09/23/24 TSH 1.450 uIU/mL (0.358-3.740) 03/09/24 09:43 03/09/24 COAG PT 12.5 SECONDS (11.7-14.9) 01/24/24 07:17 01/24/24 Pre-Assessment Diagnosis/Proposed Procedure Planned Operative Procedure(s): Peripheral Vascular Access, IN SUPERVISOR POWDER AND PRIMER CANNING, ANESTHESIA ONLY Anesthesia History 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 When Was Last Pacemaker Check QUESTION #4 FULL TEXT: You/Your Family Experience fever (hyperthermia) with Anesthesia Last Oral Intake Last Oral intake: Last Oral Intake NPO since 20:00 10/07/24 08:56 Meds taken in AM with sips of Yes 10/07/24 08:56 water? Meds patient instructed to take am of surgery PONV PONV - energy efficient site manager: PONV - energy efficient site manager Female No 09/23/24 11:15 HX of Motion Sickness Yes 09/23/24 11:15 HX of N/V After Surgery No 09/23/24 11:15 Non-Smoker Yes 09/23/24 11:15 Duration of Surgery greater Yes 09/23/24 11:15 than 60 minutes Number of Risk Factors 3 09/23/24 11:15 PONV Score Moderate Risk 09/23/24 11:15 Height & Weight Height & Weight: Anesthesia: Height & Weight Height 6 ft 5 in 10/07/24 08:56 Weight: 105.8 kg 10/07/24 08:56 Body Mass Index (BMI) 27.6 10/07/24 08:56 Respiratory Assessment Respiratory Assessment - energy efficient site manager: Respiratory Tract Infection Hx - energy efficient site manager Hx Respiratory Tract Infection No 09/23/24 11:15 STOP Sleep Apnea STOP Sleep Apnea - energy efficient site manager: STOP Sleep Apnea - energy efficient site manager Hx Hypertension Yes: CONTROLLED WITH MED 09/23/24 11:15 Hx Sleep Apnea Yes 09/23/24 11:15 CPAP Yes: NON COMPLIANT, NEVER 09/23/24 11:15 GOT MACHINE BIPAP No 09/23/24 11:15 Do you snore loudly (louder than talking or can be heard Do you often feel tired/ fatigued/ sleepy during daytime? Has anyone observed you stop breathing during sleep? STOP Results Positive 09/23/24 11:15 QUESTION #5 FULL TEXT : Do you snore loudly (louder than talking or can be heard through closed doors)? Tobacco Use History Tobacco Use History - energy efficient site manager: Tobacco Use History - energy efficient site manager Tobacco Use Smoking Status Former smoker 09/23/24 11:15 Hx Tobacco Use Yes 09/23/24 11:15 Years Smoking Packs Smoked per Day Smoking Cessation Date was Yes - quit smoking within 15 09/23/24 11:15 within the last 15 years years Hx Smoking Cessation Date 01/04/24 09/23/24 11:15 Hx Smoking Cessation No 09/23/24 11:15 Counseling Hematologic Medial History Hematologic Hx - energy efficient site manager: Hematologic Medical Hx - lisw Hx of Blood Transfusion No 09/23/24 11:15 Hx of Transfusion in last 3 No 09/23/24 11:15 Months Date of Last Transfusion (if within last 3 months) Ever experience any problems No 09/23/24 11:15 with transfusion(s)? Specify any problems Hx of Preganancy in last 3 N/A 09/23/24 11:15 Months Nurse Filling Out Transfusion NBU[facility]ER 09/23/24 11:15 & Questions: Date: 09/23/24 09/23/24 11:15 Time: 11:18 09/23/24 11:15 Patient unable to answer at this time (ie. confused, unrespo /Reproduction History /Reproductive History - energy efficient site manager: /Reproductive Hx- energy efficient site manager Hx Now No 09/23/24 11:15 Gestational Age (in weeks): EDC: Hx Hx Para Hx Section SAB No 09/23/24 11:15 Active Medications Active Medications: Current Medications Generic Name Dose Route Start Last Admin Trade Name Freq PRN Reason Stop Dose Admin Lactated Ringer's 1,000 mls @ 15 mls/hr 10/07/24 08:45 10/07/24 09:02 IV 15 mls/hr .Q48H PEMA Administration Clindamycin Phosphate 900 mg in 50 mls @ 75 mls/hr 10/07/24 09:30 Cleocin IV 10/07/24 10:09 INTRAOP ONE PFSH Medical History (Updated 09/23/24 @ 11:25 by So Ward) Wears contact lenses Alcohol use Former smoker High cholesterol History of diverticulitis Cardiology follow-up encounter History of echocardiogram History of stress test Non-ischemic cardiomyopathy Abnormal EKG History of high cholesterol History of high blood pressure History of environmental allergies Polycythemia Elevated norepinephrine level Vitamin D deficiency Hypercholesteremia Hypercalcemia Smoker Stress reaction Grieving Hypertension Osteoarthritis DDD (degenerative disc disease) Low back pain Abnormal glucose tolerance test Abnormal chest CT Home Medications ?Medication ?Instructions ?Recorded ?Last Taken ?Type cholecalciferol (vitamin D3) 50 150 mcg PO DAILY 05/28/22 10/07/24 History mcg (2,000 unit) capsule lovastatin 20 mg tablet 20 mg PO DAILY 05/28/22 10/06/24 History metformin 500 mg tablet,extended 500 mg PO BID 05/28/22 Unknown History release 24 hr phytonadione (vitamin K1) 100 mcg 100 mcg PO DAILY 05/28/22 10/06/24 History tablet tramadol 50 mg tablet 50 mg PO Q8H PRN pain 05/28/22 Unknown History ascorbate calcium (vitamin C) 500 500 mg PO BID 01/22/23 10/07/24 History mg tablet aspirin 81 mg tablet,delayed 81 mg PO QDAY #90 tabs 01/26/24 10/05/24 Rx release (Adult Aspirin Regimen) furosemide 20 mg tablet (Lasix) 20 mg PO QDAY #90 tabs 01/26/24 10/05/24 Rx potassium chloride 10 mEq 10 meq PO QDAY #90 caps 01/26/24 10/05/24 Rx capsule,extended release carvedilol 6.25 mg tablet 6.25 mg PO BID #180 tabs 06/16/24 10/06/24 Rx valsartan 160 mg tablet 160 mg PO QDAY #90 tabs 06/16/24 10/05/24 Rx dapagliflozin propanediol 10 mg 10 mg PO QDAY Daily: Fax to 08/31/24 10/04/24 History tablet (Farxiga) [facility] [phone] Allergy/AdvReac Type Severity Reaction Status Date / Time Penicillins Allergy Unknown unknown Verified 10/07/24 08:54 Family History Father Diabetes Brother Cancer Bipolar 1 disorder Depression Anxiety Daughter Anxiety Surgical History (Updated 09/23/24 @ 11:25 by So Ward) History of cardiac catheterization History of intestinal surgery (~07/2001) Social History Smoking Status: Former smoker how long ago did patient quit smokin/4 pack daily alcohol intake: current details: frequently substance use type: does not use additional social history: pt denies vaping, pt denies edibles, denies marijuana use, uses aspirin daily( baby) Ibuprofen as needed Review of Systems (Anesthesia) ROS Narrative System reviewed and no additional complaints, except as documented.
[2024-10-07 09:44] LABS: Bedside Glucose 131 mg/dL (74-106)
--- NOTE | 2024-10-07 11:00 | EX.DEFIBPR_ITS ---
Defibrillator Procedure Note Defibrillator Procedure Note Procedure:Successful Resynchronization ICD implantation with Coronary Sinus Paci ng. Indication: Primary Prevention Nonischemic Cardiomyopathy NYHA Class II LVEF 15-20% LBBB, QRS 168 ms Findings: The patient was brought to the EP LAB in the fasting well-hydrated state and prepped and draped in the usual sterile fashion. Local anesthesia with 2% lidocaine was used to achieve a numbing effect in the LEFT pectoral region. In addition, iv anesthesia was administered by anesthesia personnel present throughout the case. An incision was made 2 fingerbreadths below the left clavicle and a pocket was made by blunt dissection. Bleeding vessels were coagulated using electrocautery. Using modified Seldinger technique, three guidewires was placed into the left axillary vein down to the low RA. Through a venous sheath the RV lead was passed into the RV apex. The active s crew mechanism was extended. Adequate pacing and sensing thresholds were measured. Diaphragmatic stimulation was excluded with high output pacing. ?The introducer sheath was peeled away. Over a second guidewire a coronary sinus guiding sheath was placed into the low right atrium. The coronary sinus ostium was cannulated and using a guidewire the sheath was deep placed into the coronary sinus. A coronary sinus venogram was performed. This delineated a posterior lateral branch of the coronary sinus. Target was the posterior lateral branch. Using a 0.014 Whisper wire the lateral branch was accessed and a quadripolar LV lead was passed into the distal portion of the subbranch. Adequate pacing and sensing thresholds were measured. Diaphragmatic stimulation was excluded with high output pacing. The introducer sheath was peeled away. Next using the third guidewire a introducer sheath was placed into the central circulation. Through the venous sheath an active-fixation right atrial lead was passed in the right atrium the active screw mechanism was deployed and the lead was attached to the myocardium. Adequate pacing and sensing thresholds were measured. Diaphragmatic stimulation was excluded with high output pacing. The introducer sheath was peeled away. The leads were secured in the pocket using 2-0 silk with initial suture tie made to the pectoralis muscle and fascia, followed by wrapping around and tying securely to the lead sleeves. In addition, a purse string suture was tied around the leads entry site with 2-0 Vicryl for hemostasis. The leads were connected to the resynchronization ICD pulse generator. The pocket was irrigated with antibiotic solution. The pulse generator was placed into the pocket with redundant lead allowed to form a mark coil behind the pulse generator. The pocket was irrigated with antibiotic solution. The pocket was closed in 2 layers with 2-0 and 4-0 Vicryl for the subcutaneous and subcuticular layers respectively. Hemostasis was achieved with manual pressure. Upon closure no bleeding was noted. A sterile dressing was applied. The patient was recovered and sent to their room in stable condition. Complications: none. Specimens: none. Estimated blood loss: 10mL. Contrast: 20mL See enclosed work sheet for device information.
--- NOTE | 2024-10-07 11:12 | PCM.POST.ANE ---
Anesthesia: Postop Eval I Current Vital Signs Temperature: 97 F Pulse Rate: 63 Blood Pressure: 119/78 Respiratory Rate: 16 Pulse Ox: 96 Assessment Airway patent: Yes Spontaneous unlabored respirations: Yes nausea: No Vomiting: No Anesthesia Complication: No Fluid Hydration Crystalloid volume administer (ml): 800 Total IV fluid infused: 800 Progress Note Anesthesia document: Postop Eval 1 completed: Yes
--- NOTE | 2024-10-07 11:28 | POSTOPAN2_ITS ---
Anesthesia Postop Eval I Sum Postop Eval Completion status Anesthesia document: Postop Eval 1 completed: Yes Anesthesia Postop Eval I Summary Anesthesia Postop Eval I Summary: Anesthesia Postop Eval I: Assessment Summary Airway patent Yes 10/07/24 11:12 COLLECTIONS REPRESENTATIVE.TNES Spontaneous unlabored Yes 10/07/24 11:12 COLLECTIONS REPRESENTATIVE.TNES respirations Mental status nausea No 10/07/24 11:12 COLLECTIONS REPRESENTATIVE.TNES Vomiting No 10/07/24 11:12 COLLECTIONS REPRESENTATIVE.TNES Anesthesia Postop Eval I: Fluid Summary Crystalloid volume administer 800 10/07/24 11:12 COLLECTIONS REPRESENTATIVE.TNES (ml) Colloids volume administered ( ml) Blood Product volume administered (ml) Total IV fluid infused 800 10/07/24 11:12 COLLECTIONS REPRESENTATIVE.TNES Anesthesia Postop Eval I: Summary Notes Anesthesia Complication No 10/07/24 11:12 COLLECTIONS REPRESENTATIVE.TNES Anesthesia Complication Comment: Post-operative progress note Anesthesia: Postop Eval II Evaluation Mental status: Awake Pain Level: 0 nausea: No Vomiting: No Complications Anesthesia Complication: No
--- NOTE | 2024-10-07 11:28 | PCM.POSTANE2 ---
Anesthesia Postop Eval I Sum Postop Eval Completion status Anesthesia document: Postop Eval 1 completed: Yes Anesthesia Postop Eval I Summary Anesthesia Postop Eval I Summary: Anesthesia Postop Eval I: Assessment Summary Airway patent Yes 10/07/24 11:12 FARM MANAGEMENT [email or web address].[email or web address] Spontaneous unlabored Yes 10/07/24 11:12 FARM MANAGEMENT TEACHER.TNES respirations Mental status nausea No 10/07/24 11:12 FARM MANAGEMENT TEACHER.TNES Vomiting No 10/07/24 11:12 FARM MANAGEMENT TEACHER.TNES Anesthesia Postop Eval I: Fluid Summary Crystalloid volume administer 800 10/07/24 11:12 FARM MANAGEMENT TEACHER.TNES (ml) Colloids volume administered ( ml) Blood Product volume administered (ml) Total IV fluid infused 800 10/07/24 11:12 FARM MANAGEMENT [email or web address].TNES Anesthesia Postop Eval I: Summary Notes Anesthesia Complication No 10/07/24 11:12 FARM MANAGEMENT TEACHER.TNES Anesthesia Complication Comment: Post-operative progress note Anesthesia: Postop Eval II Evaluation Mental status: Awake Pain Level: 0 nausea: No Vomiting: No Complications Anesthesia Complication: No
--- NOTE | 2024-10-07 14:40 | RAD_ITS ---
PROCEDURE: CHEST PA AND LATERAL 10/07/2024 REASON FOR EXAM: EVALUATE LEAD POSITION, POST PERMANENT ICD PLCMNT TECHNIQUE: CHEST PA AND LATERAL COMPARISON: September 23, 2024. FINDINGS: Hardware: A left-sided ICD was placed. An atrial lead is seen. The ventricular lead seen along the inferior aspect of the heart. Heart: Upper limits of normal. Mediastinum: The mediastinal contour is unremarkable. Lungs: Lungs are clear. Bones: Degenerative changes are identified within the thoracic spine. RAD/Chest PA and Lateral IMPRESSION: Ventricular lead is seen along the inferior aspect of the heart. Reading Location: [facility]
--- NOTE | 2024-10-07 16:26 | CASEMGMT ---
Social Work Met with patient and for Advance Directive follow up. Patient reports to have directives at home, or with the staff attorney and will have to look for documents after goes home. Encouraged patient to get forms dropped off to the hospital when can find them. Explored whether patient has any concerns with home going, to which patient denies as well as denies resource needs. -FERNANDA Manning
[2024-10-07] MEDS: Carvedilol 6.25 MG Tablet PO (18:17)
[2024-10-08 03:00] VITALS: PULSE 61
[2024-10-08 03:11] VITALS: BP 163/85; PULSE 64; RESP 17; TEMP 36.7; O2SAT 95
--- NOTE | 2024-10-08 05:26 | RAD_ITS ---
PROCEDURE: CHEST 3 VIEW 10/08/2024 REASON FOR EXAM: POST PERMANENT ICD/PACEMAKER TECHNIQUE: CHEST 3 VIEW COMPARISON: 10/07/2024. FINDINGS: AICD is in good position. Mild central pulmonary venous congestion. Mild bilateral basilar atelectatic pulmonary changes. There is no demonstrated pleural abnormality. Enlarged cardiac silhouette. Normal mediastinum and petty. Normal visualized pulmonary arteries. Atheromatous plaques of the visualized aortic arch and descending thoracic aorta. Diffuse spondylosis of the visualized thoracic spine. Normal visualized ribs, clavicles. Degenerative joint disease. There is no demonstrated abnormality of the visualized soft tissue structures of the upper abdomen. RAD/Chest 3 View IMPRESSION: Mild central pulmonary venous congestion. Mild bilateral basilar atelectatic pulmonary changes. [facility]
[2024-10-08 09:15] VITALS: BP 156/90; PULSE 66; RESP 18; TEMP 36.7; O2SAT 96
[2024-10-08] MEDS: Carvedilol 6.25 MG Tablet PO (09:25)
[2024-10-08] MEDS: metFORMIN (XR) 500 MG Tablet PO (09:25)
[2024-10-08] MEDS: Aspirin E.C. 81 MG Tablet PO (09:25)
[2024-10-08] MEDS: Losartan Potassium 50 MG Tablet PO (09:25)
[2024-10-08] MEDS: Furosemide 20 MG Tablet PO (09:26)
[2024-10-08] MEDS: Atorvastatin Calcium 10 MG Tablet PO (09:26)
[2024-10-08] MEDS: Empagliflozin 25 MG Tablet PO (09:26)
[2024-10-08] MEDS: Potassium Chloride Oral Tablet 10 MEQ PO (09:26)
--- NOTE | 2024-10-08 09:50 | PCM.DC ---
Discharge Instructions Diet Discharge Diet: Low fat / Low cholesterol DC O2, CPAP, BIPAP needs Home O2 Discharge instructions: No Dressing / Incision May resume sexual activity in: 6-8 weeks Lifting Restrictions: No lifting with the left arm for 6 weeks. Keep the left arm below shoulder Additional Activity Instructions:: Keep the left arm below shoulder height for next 6 weeks Dressing / Incision Call your doctor if your incision/area has: Continuous Slow Oozing, Sudden Increased Bleeding, Increased Pain/ Swelling, Increased Redness and Foul Smelling Discharge Call your doctor if you observe: Fever of 101 or Higher Change Dressing in: leave in place till F/U Cleanse incision/area with: Do not get Incision Wet Follow Up Care Please Follow Up With: Danelle Morales When: October 20 per previous arranged appointment with the [place] [facility]. Test Results: Test results from this visit will be discussed in further detail at your follow-up appointment, if applicable. Discharge Plan Admission Admit Date/Time: 10/07/24 10:54 Primary Reason for Your Visit: REFRIGERATION PLANT CORK INSULATOR-D implant Attending Provider: Kelvin Flores Primary Care Provider: Vivienne Cordero Discharge Orders/Prescriptions Prescriptions: No Action tramadol 50 mg tablet 50 mg PO Q8H PRN (Reason: pain) metformin 500 mg tablet extended release 24 hr 500 mg PO BID lovastatin 20 mg tablet 20 mg PO DAILY cholecalciferol (vitamin D3) 50 mcg (2,000 unit) capsule 150 mcg PO DAILY phytonadione (vitamin K1) 100 mcg tablet 100 mcg PO DAILY ascorbate calcium (vitamin C) 500 mg tablet 500 mg PO BID valsartan 160 mg tablet 160 mg PO QDAY Qty: 90 3RF carvedilol 6.25 mg tablet 6.25 mg PO BID Qty: 180 3RF Rx Instructions: must administer with a meal/food dapagliflozin propanediol [Farxiga] 10 mg tablet 10 mg PO QDAY aspirin [Adult Aspirin Regimen] 81 mg tablet,delayed release (DR/EC) 81 mg PO QDAY Qty: 90 3RF furosemide [Lasix] 20 mg tablet 20 mg PO QDAY Qty: 90 3RF potassium chloride 10 mEq capsule, extended release 10 meq PO QDAY Qty: 90 3RF Referrals / Follow Up: Vivienne Cordero DO [Primary Care Provider] - Disposition Disposition (needs filled in before D/C Order can be placed): Home, Self Care
--- NOTE | 2024-10-08 09:54 | PN.CARD_ITS ---
Subjective Subjective Patient resting comfortably in the seated position in the chair. Left arm is in the sling. Left infraclavicular incision site is dry dressing in place. Chest x-ray shows no evidence of pneumothorax. Telemetry shows AV pacing. Device check was performed and the patient has been cleared for discharge by the device rep. Objective Data Vital Signs: Vital Signs Temp Pulse Resp BP Pulse Ox O2 Del Method 98.0 F 66 18 156/90 H 96 Room Air 10/08/24 09:15 10/08/24 09:15 10/08/24 09:15 10/08/24 09:15 10/08/24 09:15 10/08/24 09:15 Oxygen Delivery Method Room Air Weight: 233 lb 3.985 oz Body Mass Index (BMI) 27.6 Intake & Output: Intake and Output for Last 24 Hours 10/06/24 10/07/24 10/08/24 23:59 23:59 23:59 Intake Total 1645 / 1645 Output Total 505 / 505 525 / 525 Balance 1140 / 1140 -525 / -525 Lab / Micro Data Attestation: I reviewed the patient's lab results. 09/23/24 16:06 09/23/24 16:06 Rhythm Strip Rhythm Strip: AV paced rhythm Cardiology Labs/Tests Rhythm: EKG: ECHO: Stress Test: Cardiac Cath: PCI: CT Surgery: Holter monitor: EPS: PPM: CXR: Chest CT Scan: Radiography Diagnostic Testing: Radiology Impression Chest X-Ray 10/07/24 14:40 IMPRESSION: Ventricular lead is seen along the inferior aspect of the heart. Reading Location: [facility] Chest X-Ray 10/08/24 05:26 IMPRESSION: Mild central pulmonary venous congestion. Mild bilateral basilar atelectatic pulmonary changes. [facility] Const alert and oriented x3 Chest Chest: left pectoral incision Resp normal respiratory effort Assessment & Plan Assessment/Plan (1) Cardiac resynchronization therapy defibrillator (PATIENT CARE SPECIALIST-D) in place: PLAN: PATIENT CARE SPECIALIST-D implanted normal device check and no evidence of pneumothorax. Patient has a scheduled follow-up in the [place] device clinic October 20, 2024. PLAN: Plan 1. Discharge to home. 2. Follow-up with the [place] [facility] per previous arranged appointment 10/20/2024 Charges/Coding Visit Charges Inpatient E&M: 69449 Disch Hosp
[2024-10-08 09:57] VITALS: BP 156/90; PULSE 66; RESP 18; TEMP 36.7; O2SAT 96
--- NOTE | 2024-10-08 10:13 | CASEMGMT ---
Patient has order for discharge. RN CM in to discuss needs at discharge. Patient denies needs or help at discharge. Patient had no further questions or concerns.
== END 2024-10-08 09:49 | disposition home or self-care (01) ==
LOC: SDC 11:21 → PCU 11:21
PROVIDERS: Admitting Provider Internal Medicine Clinical Cardiac Electrophysiology; PCP Internal Medicine; Referring Provider Internal Medicine Clinical Cardiac Electrophysiology; Visit Provider Internal Medicine Clinical Cardiac Electrophysiology
DX: Z45.02 Encounter for adjustment and management of automatic implantable cardiac defibrillator (principal); I11.0 Hypertensive heart disease with heart failure; I50.9 Heart failure, unspecified; I42.8 Other cardiomyopathies; E11.9 Type 2 diabetes mellitus without complications; Z82.49 Family history of ischemic heart disease and other diseases of the circulatory system; E78.00 Pure hypercholesterolemia, unspecified; Z87.891 Personal history of nicotine dependence; I44.7 Left bundle-branch block, unspecified; Z79.899 Other long term (current) drug therapy; Z79.82 Long term (current) use of aspirin
CPT/HCPCS: 33225; 33249; 36415; 71046; 71047; 80048; 81001; 82962; 85027; 99221; Q9967; C1751; C1769; G0378

== ENCOUNTER → 2025-03-15 | Outpatient (CLI) | payer OTHER, SELFPAY ==
--- NOTE | 2025-03-15 08:52 | ECHOD_ITS ---
Reason For Study Reason For Study: Evaluate EF after SHEAR OPERATOR AUTOMATIC-D implant Procedure This was a 2D Doppler, Color Flow transthoracic echocardiogram. Myocardial strain analysis was performed in this exam to aid in the assessment of cardiac function. Exam performed in department. Left Ventricle Normal left ventricle. Moderate concentric left ventricular hypertrophy. The global longitudinal strain = -10.5% (abnormal). The left ventricular ejection fraction is 35 %. There is moderate global hypokinesis of the left ventricle. Right Ventricle Normal RV size. ICD or pacer leads identified within the right ventricle. Normal systolic function. Atria Normal left atrium. Normal right atrium. Mitral Valve Normal mitral valve. Tricuspid Valve Normal tricuspid valve. Aortic Valve Trisinus/trileaflet aortic valve. Pulmonic Valve Normal pulmonic valve. Great Vessels Normal aortic root. The pulmonary artery is normal size. Inferior vena cava collapse with respiration. Pericardium/Pleural No pericardial effusion. MMode/2D Measurements & Calculations LVIDd: 5.4 cm IVSd: 1.5 cm Ao root diam: 3.5 cm LVIDs: 4.7 cm LVPWd: 1.3 cm RVDd: 3.7 cm FS: 13.8 % LAV(MOD-bp): 56.6 ml LVAd ap4: 48.4 cm2 SV(MOD-sp4): 51.5 ml LAV(MOD-bp) Indexed: 23.8 ml/m2 LVLd ap4: 10.9 cm SI(MOD-sp4): 21.7 ml/m2 LAV(MOD-sp2): 59.4 ml EDV(MOD-sp4): 175.1 ml LAV(MOD-sp4): 47.3 ml EDV(sp4-el): 182.4 ml LVAs ap4: 36.7 cm2 LVLs ap4: 9.4 cm ESV(MOD-sp4): 123.6 ml ESV(sp4-el): 121.2 ml EF(MOD-sp4): 29.4 % EF(sp4-el): 33.6 % SV(sp4-el): 61.3 ml LA A4 area: 18.1 cm2 LA dimension(2D): 4.0 cm RA A4 area: 13.5 cm2 TAPSE: 1.7 cm Time Measurements MV dec time: 0.21 sec Doppler Measurements & Calculations MV E max zach: 37.8 cm/sec Lat Peak E' Zach: 2.8 cm/sec Med Peak E' Zach: 3.8 cm/sec MV A max zach: 84.2 cm/sec E/E' lat: 13.3 E/E' med: 9.9 MV E/A: 0.45 MV V2 max: 98.1 cm/sec MV P1/2t max zach: 44.5 cm/sec Ao V2 max: 127.0 cm/sec MV max P.9 mmHg MV P1/2t: 76.1 msec Ao max P.4 mmHg MV V2 mean: 49.7 cm/sec Ao V2 mean: 90.4 cm/sec MV mean P.3 mmHg MV dec slope: 171.3 cm/sec2 Ao mean P.7 mmHg MV V2 VTI: 23.5 cm MVA(P1/2t): 2.9 cm2 Ao V2 VTI: 22.1 cm LV V1 max: 103.9 cm/sec PA V2 max: 114.0 cm/sec TR max zach: 204.8 cm/sec LV V1 max P.3 mmHg TR max P.8 mmHg ECHO/Echo Complete Interpretation Summary Normal left ventricle. The global longitudinal strain = -10.5% (abnormal). The left ventricular ejection fraction is 35 %. Moderate concentric left ventricular hypertrophy. Compared to previous study, the left ventricular systolic function has improved .. Ordering Physician: Rakesh Cunningham Referring Physician: Rakesh Cunningham Performed By: Delon Roper RCS
== END | disposition home or self-care (01) ==
LOC: CVS 08:51
PROVIDERS: PCP Internal Medicine; Referring Provider Internal Medicine Cardiovascular Disease; Visit Provider Internal Medicine Cardiovascular Disease
DX: I44.7 Left bundle-branch block, unspecified (principal); Z95.810 Presence of automatic (implantable) cardiac defibrillator
CPT/HCPCS: 93306